=== PATIENT | male | born 2000 | race Caucasian/White ===

== ENCOUNTER 2022-11-03 02:12 | Inpatient (IN) ==
[2022-11-03 03:03] LABS: Basophils # (auto) 0.09 K/uL (0-0.2); Basophils % (auto) 0.8 %; Eosinophils # (auto) 0.28 K/uL (0-0.50); Eosinophils % (auto) 2.4 %; Hematocrit (blood only) 42.4 % (42.0-52.0); Hemoglobin 15.7 g/dl (14.0-18.0); Immature Granulocytes % (auto) 0.9 %; Lymphocytes # (auto) 3.73 K/uL (1.2-3.4); Lymphocytes % (auto) 32.2 %; Mean Corpuscular Hemoglobin 30.8 pg (25.0-34.0); Mean Corpuscular Volume 83.3 fL (80.0-100.0); Mean Platelet Volume 10.5 fL (9.4-12.4); Monocytes % (auto) 7.8 %; Neutrophils # (auto) 6.47 K/uL (1.40-6.50); Neutrophils % (auto) 55.9 %; Platelet Count 293 K/uL (130-400); RDW Standard Deviation 36.3 fL (36.4-46.3); Red Blood Count 5.09 M/uL (4.70-6.10); White Blood Count 11.57 K/ul (4.8-10.8)
[2022-11-03 03:06] LABS: Appearance Urine Turbid (Clear); Bacteria Urine Automated Negative (Negative); Blood Urine 3+ (Negative); Color Urine Red; Glucose Urine UA Negative (Negative); Ketones Urine Negative (Negative); Leukocyte Esterase Urine 1+ (Negative); Nitrite Urine Positive (Negative); Protein Urine 1+ (Negative); RBC Urine Automated >30 /hpf (0-4); Specific Gravity Urine 1.029 (1.000-1.030); Urobilinogen Urine Negative (Negative)
[2022-11-03 03:23] LABS: Albumin Globulin Ratio 1.6 (0.9-2); Albumin Level 4.3 gm/dl (3.4-5.0); BUN Creatinine Ratio 16.5 (10-20); Bilirubin,Total 0.5 mg/dl (0.2-1.0); Calcium 9.4 mg/dl (8.5-10.1); Creatinine Clr Calc Pharmacy 182.2 ml/min; Est GFR (African American) 144.4 ml/min; Est GFR (Non-African American) 124.6 ml/min; Globulin 2.7 gm/dl (2.5-4.0); Potassium 3.8 mmol/L (3.5-5.1)
[2022-11-03 03:47] LABS: Bilirubin Urine 1+ (Negative)
[2022-11-03] MEDS ORDERED: cefTRIAXone SODIUM 2,000 MG/70 ML BAG IV STA (05:23)
--- NOTE | 2022-11-03 05:44 | History & Physical Report ---
Date of Service November 03, 2022 Assessment & Plan (1) Nephrolithiasis: Plan: Jorge is a 22 year old male admitted for hydronephrosis and nephrolithiasis. Nephrolithiasis: -WBC 11.57. -UA w/ blood, nitrite, LE; culture pending. -CT A&P - evidence of hydronephrosis of R kidney from 8.5mm stone at R pelviureteric junction. -NPO, started on IVF D5/.5NSS at 125ml/hr. -Given Ceftriaxone 1g x1 in ED. Continue 1g q24h. -Tylenol 650mg q4h PRN for pain, zofran 4mg PRN for nausea -Urology consulted: -Continue above management, add flomax. -May require cystoscopy w/ stent in near future. -Admit to med/tele DVT Prophylaxis: Patient mobile, no need at current time. F/E/N/GI: NPO. Code status: Full code. Dispo: Med/tele. History of Present Illness Chief Complaint: Abdominal pain. Primary Care Provider: NO PCP Jorge is a 22 year old male w/ no past medical history came to the ED for hematuria x3 days as well as abdominal pain x1day. Patient states that 3 days prior he noticed blood in his urine that had continued to present. He states that that was his only symptom until yesterday when he started to develop R lateral abdominal pain that came down to his R pelvis and was somewhat at the back. He took two Tylenol for the pain initially which helped however subsequent dose did not help too much and so he came in to the emergency department for further evaluation. He denies nausea, vomiting, diaphoresis, fevers, chills, chest pain, shortness of breath, headaches. He denies any past history of kidney stones nor any known family history of kidney stones. He states he last ate when he first came into the ED. 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 In the ED he was found to have a WBC 11.57, hgb 15.7, platelet 293, electrolytes, kidney function, and liver function WNL. U/A was positive for blood, nitrite, LE, WBC. CT A&P showed evidence of hydronephrosis on the R as well as a 8.5mm stone at the R pelviureteric junction. He was given a dose of 1g Ceftriaxone without issue. Allergies Allergy/AdvReac Type Severity Reaction Status Date / Time Penicillins Allergy Hives Verified 11/03/22 03:09 Home Medications Medication Instructions Recorded Confirmed Type oxybutynin chloride 5 mg 5 mg PO DAILY #30 tabs 11/03/22 Rx tablet,extended release 24 hr (Ditropan XL) oxycodone 5 mg tablet 5 mg PO Q6H PRN pain #8 tabs 11/03/22 Rx sulfamethoxazole 800 1 tab PO Q12H #6 tabs 11/03/22 Rx mg-trimethoprim 160 mg tablet (Bactrim DS) tamsulosin 0.4 mg capsule (Flomax) 0.4 mg PO DAILY #30 caps 11/03/22 Rx Past Med/Surg History Medical History No significant past medical history Surgical History (Updated 11/03/22 @ 11:23 by Julian Chin MD) No significant past surgical history Social History Smoking Status: Never smoker Hx Alcohol Use: No Hx Substance Use: No Preferred Language: Polish Communication Ability: Effective Director [employer]anch[employer] Required: No Beliefs That Will Affect Care: None Current Living Situation: Family Feels Safe at Home: Yes Review of Systems Review of Systems: As per HPI. Physical Exam Constitutional: WD/WN, vitals as above Eyes: PERRL, conjunctivae normal, anicteric sclerae ENMT: external ear and nose normal, oropharynx normal Respiratory: normal respiratory effort, lungs clear to auscultation Cardiovascular: RRR, no murmur, no edema Gastrointestinal (Abdomen): normal bowel sounds, soft, nontender, no hepatosplenomegaly Skin: no rashes, warm and dry Psychiatric: A+Ox3, euthymic affect Genitourinary: No CVA tenderness. Results & Data Results & Data ([facility]) Vital Signs (Past 12 Hours) Vital Signs Temp Pulse Pulse Resp BP BP Pulse Ox 11/03/22 03:26 81 16 148/78 H 96 11/03/22 02:18 36.5 C 88 18 160/91 H 100 O2 Del Method 11/03/22 03:26 Room Air 11/03/22 02:18 Room Air Diagnostic Findings CT ABDOMEN & PELVIS Without Contrast: Impression: There is right-sided hydronephrosis due to 8.5 mm calculus at the right pelviureteric junction. No evidence of bladder wall thickening. Unremarkable left kidney. Supervising Physician Co-Signing Physician Notes Attending addendum: I have physically seen this patient, have supervised the medical residents activities, and agree with the H&P unless as otherwise noted. Assessment and Plan: 8.5 mm right UPJ stone/moderate hydronephrosis- NPO Follow urine culture sensitivity Ceftriaxone 2 g IV daily D5 half-normal saline at 125 mils per hour Zofran 4 mg IV every 6 hours as needed Morphine sulfate 4 mg IV every 6 hours as needed moderate pain Urology has seen the patient in the ED Serial CBC with differential, BMP and magnesium levels Remaining orders and notations as noted Resident Activity Tracking Resident Involvement: Resident Care Provided Care Provided: [facility]
--- NOTE | 2022-11-03 05:49 | Urology Consultation ---
Date of Consultation November 03, 2022 Assessment & Plan (1) Nephrolithiasis: The patient is being admitted on the hospitalist service. Recommend proceeding as follows: Provide analgesicsprovide antiemetics Provide IV fluid for hydration Consider adding Flomax for expulsive therapy Initiate antibiotics due to concern for urinary tract infection Recommend keeping the patient n.p.o. for the present time he is currently afebrile without hypotension or tachycardia. He also does not exhibit leukocy tosis or acute kidney injury. An emergent procedure at this time is not required but the patient may require cystoscopy with stent in the near future. This will be determined after evaluation by urology attending this morning Supervising Physician Co-Signing Physician Notes Discussed patient with MARIELA. Agree with plan. Saw patient personally, discussed stone with patient and parents. Due to positive UA and right proximal ureteral calculus, recommend proceeding to the OR for cystoscopy, right retrograde pyelogram and right ureteral stent placement. This cannot occur until after 1 PM as patient ate food at 5 AM. Continue antibiotics. Consent obtained, patient marked History of Present Illness History of Present Illness This is a 22-year-old male who developed right-sided flank pain that radiated to his abdomen over the past 24 hours. Because of this pain he presented to the emergency department. He denies any nausea or vomiting. He denies any fevers, shakes, or chills. He denies any dysuria but does note gross hematuria. He notes he has never had a kidney stone in the past. He does note that his most recent oral intake was approximately 10 minutes ago where he ate a bag of chips. Since arrival to the hospital the patient has had labs and imaging which I independently reviewed. A CT scan of the abdomen pelvis showed that patient had right-sided hydronephrosis secondary to an 8.5 mm kidney stone at the right ureteropelvic junction. Labs include a CBC her white blood cell count was 11.5. Hemoglobin, hematocrit, platelet count were normal. Chemistry profile showed sodium, potassium, BUN, and creatinine were normal. Urinalysis showed turbid urine with 3+ blood and was positive for nitrites. There is also 1+ leukocyte Estrace and 10-30 white blood cells per high-power field. There is no bacteria noted on the study. A COVID test is pending. At the time of my interview he was resting comfortably in bed and he was in no distress. Allergies Allergy/AdvReac Type Severity Reaction Status Date / Time Penicillins Allergy Hives Verified 11/03/22 03:09 Home Medications Medication Instructions Recorded Confirmed Type Azo Max Strength 2 tab PO DIRECTED 11/03/22 11/03/22 History acetaminophen 325 mg capsule 1,300 mg PO QID PRN Pain 11/03/22 11/03/22 History (Tylenol) Patient History Medical History No significant past medical history Social History Smoking Status: Never smoker Hx Alcohol Use: No Hx Substance Use: No Preferred Language: Citizen Of [place] Communication Ability: Effective Helper Driver Required: No Beliefs That Will Affect Care: None Current Living Situation: Family Other Information That Helps Us Care for You: No Feels Safe at Home: Yes Safety Concerns: Feels Safe At This Time Review of Systems Constitutional: no fever and no chills Eyes: + corrective lenses Ear, Nose, Mouth, Throat: no ear pain Respiratory: no cough and no dyspnea Cardiovascular: no chest pain Gastrointestinal: + abdominal pain (Radiating from right flank); no nausea and no vomiting Genitourinary: + as per Subjective / HPI Musculoskeletal: + back pain (Right flank) Integumentary: no rash Neurologic: no localized weakness Physical Exam Constitutional: WD/WN, vitals as above Eyes: no conjunctival abnormality ENMT: Ears: no hearing impairment and no external ear abnormality Mouth: no oropharynx abnormality Neck: trachea midline Respiratory: normal respiratory effort; no respiratory distress and no labored breathing Cardiovascular: Rate/Rhythm: regular rate and regular rhythm Gastrointestinal (Abdomen): Soft, nonrigid, nondistended, nontender to palpation Musculoskeletal: No calf tenderness Skin: no rashes Neurologic: moves all extremities Psychiatric: A+Ox3, euthymic affect Genitourinary: + CVA tenderness (Minimal CVA tenderness on right side with percussion) Results & Data ([facility]) Vital Signs (Past 12 Hours) Vital Signs Temp Pulse Pulse Resp BP BP Pulse Ox 11/03/22 03:26 81 16 148/78 H 96 11/03/22 02:18 36.5 C 88 18 160/91 H 100 O2 Del Method 11/03/22 03:26 Room Air 11/03/22 02:18 Room Air PG Care Time/CCT Total # of Minutes Spent Total Time Spent with Patient: Total time spent is greater than 50% in coordination of care (as documented) at patient's floor/unit and/or counseling patient: Coding Level of Care Code INP/OBS CONSULT LVL 5, 80 MIN Diagnoses Nephrolithiasis N20.0
--- NOTE | 2022-11-03 07:03 | CT Scan Report ---
CT SCAN OF THE ABDOMEN AND PELVIS WITHOUT IV CONTRAST CLINICAL HISTORY: Right flank pain. Hematuria. COMPARISON STUDY: No priors. TECHNIQUE: CT scan of the abdomen and pelvis is performed from the lung bases to the proximal femora. Images are reviewed in the axial, sagittal, and coronal planes. IV contrast was not administered for this examination. A dose lowering technique was utilized adhering to the principles of ALARA. CT DOSE: 1856.70 mGy.cm FINDINGS: Lung bases: The heart is normal in size and without pericardial effusion. The lung bases are clear. Liver: The unenhanced liver is enlarged, measuring 21.8 cm in length. The liver demonstrates diminish ed attenuation indicating mild steatosis. Fatty sparing is seen adjacent to the gallbladder fossa. Th ere is no intrahepatic biliary ductal dilatation. Gallbladder: Unremarkable. Spleen: Normal in size and attenuation. Pancreas: Unremarkable. Adrenal glands: Unremarkable. Kidneys: The unenhanced kidneys are normal in size. There is a 9 mm obstructing calculus at the right ureteropelvic junction seen on axial image #183. This causes [id number] right hydronephrosis. No additional calculi are identified in either kidney. There is no left ureteral stone and no left-si ded hydronephrosis. There is no evidence of contour deforming renal mass lesion. Abdominal vasculature: The abdominal aorta is normal in course and caliber. Bowel: Mild fecal retention is seen throughout the colon. There is no bowel obstruction. The appendix is well-visualized and normal. Peritoneum: There is no intraperitoneal free air or abdominal ascites. Lymphadenopathy: None. Pelvic viscera: The bladder, prostate, and seminal vesicles are normal as visualized. Skeletal structures: No lytic or blastic lesions are seen. IMPRESSION: 1. There is a 9 mm obstructing calculus at the right ureteropelvic junction. This causes mild to mode rate right hydronephrosis. 2. No additional calculi are identified in either kidney. 3. The liver is enlarged and mildly steatotic. 4. Additional findings as above. ACT 112: Negative or not required by law. Electronically signed by: Robert Musa M.D. 11/03/2022 7:01 AM
--- NOTE | 2022-11-03 07:24 | Emergency Department Note ---
History of Present Illness General Chief complaint: Abdominal Pain Stated complaint: LRQ ABD PAIN Time Seen by Provider: 11/03/22 02:30 Source: patient Mode of arrival: ambulatory Limitations: no limitations History of Present Illness Maximum Pain Intensity: 6 This patient is a 22-year-old male who presents to the emergency department for evaluation of abdominal pain and hematuria. Patient reports that he has noticed some hematuria intermittently over the past 2 days. He started taking some Azo, thinking it might be a UTI. He states that today, he has intermittent severe right-sided abdomen pain. He states that the pain radiates through his flank. He is feeling okay at this time but states that the pain is severe when it comes. He denies any vomiting. He denies any other urinary symptoms. He rates his discomfort a 6/10 at its worst. He denies any history of similar symptoms. He denies any fevers/chills Home Medications Medication Instructions Recorded Confirmed Type Azo Max Strength 2 tab PO DIRECTED 11/03/22 11/03/22 History acetaminophen 325 mg capsule 1,300 mg PO QID PRN Pain 11/03/22 11/03/22 History (Tylenol) Allergies Allergy/AdvReac Type Severity Reaction Status Date / Time Penicillins Allergy Hives Verified 11/03/22 03:09 Past Med/Surg History Medical History No significant past medical history Social History Smoking Status: Never smoker Feels Safe at Home: Yes Physical Exam Vital Signs Vital Signs - 24 hr 11/03/22 02:18 11/03/22 03:26 11/03/22 05:45 Temperature 36.5 C Temperature Source Temporal Artery Scan Pulse Rate 88 96 H Pulse Rate [Right Finger] 81 Pulse Rhythm Regular Respiratory Rate 18 16 18 Respiratory Effort / Characteristics Non-Labored Spontaneous Non-Labored Spontaneous Respiratory Depth Normal Normal Blood Pressure 160/91 H Blood Pressure [Right Arm] 148/78 H Blood Pressure Mean 114 Blood Pressure Mean [Right Arm] 101 Pulse Oximetry 100 96 93 Oxygen Delivery Method Room Air Room Air Room Air Sepsis Recent Fever Within 48 Hours No Sepsis New/Unexplained Change in Mental Status No Sepsis Action Taken by Nursing No Action Required VITALS: Vitals are noted on the nurse's note and reviewed by myself. GENERAL: This is a 22-year-old male, in no acute distress, well-developed well- nourished. SKIN: The skin was without rashes. EYES: Pupils equal round and reactive to light and accommodation. MOUTH: Mucous membranes moist. HEART: Regular rate and rhythm without murmurs gallops or rubs. LUNGS: Clear to auscultation bilaterally without wheezes, rales or rhonchi. ABDOMEN: Positive bowel sounds x 4. Soft, no tenderness to palpation. No guarding or rebound tenderness. NEURO: Patient was alert and oriented to person place and time. Course Consultations Consultation #1: Harman Emanuel PA-C - urology Consultation #2: [place]. Reynoso [place] [facility] Administered Medications Discontinued Medications Ceftriaxone Sodium (Rocephin) 2,000 mg in 70 mls @ 140 mls/hr IV NOW STA Stop: 11/03/22 05:52 Last Admin: 11/03/22 06:52 Dose: 140 mls/hr Documented By: TRINA Medical Decision Making Differential Diagnosis Appendicitis, testicular torsion, infections, diverticulitis, UTI, obstruction, mesenteric ischemia, aortic pathology, inflammatory bowel disease, renal colic, PUD, pancreatitis, biliary pathology, hernia, volvulus, constipation, as well as other pathologies. Home Medications Current Medication List: was personally reviewed by me Laboratory Data Attestation: I reviewed the patient's lab results. 11/03/22 02:36 11/03/22 02:36 Lab Results 11/03/22 11/03/22 11/03/22 Range/Units 02:36 02:36 02:36 WBC 11.57 H (4.8-10.8) K/ul RBC 5.09 (4.70-6.10) M/uL Hgb 15.7 (14.0-18.0) g/dl Hct 42.4 (42.0-52.0) % MCV 83.3 (80.0-100.0) fL MCH 30.8 (25.0-34.0) pg MCHC 37.0 H (32.0-36.0) g/dL RDW Std Deviation 36.3 L (36.4-46.3) fL RDW Coeff of Figueroa 12.0 (11.5-14.5) % Plt Count 293 (130-400) K/uL MPV 10.5 (9.4-12.4) fL Immature Gran % (Auto) 0.9 % Neut % (Auto) 55.9 % Lymph % (Auto) 32.2 % [place] % (Auto) 7.8 % Eos % (Auto) 2.4 % Baso % (Auto) 0.8 % Neut # (Auto) 6.47 (1.40-6.50) K/uL Lymph # (Auto) 3.73 H (1.2-3.4) K/uL [place] # (Auto) 0.90 H (0.11-0.59) K/uL Eos # (Auto) 0.28 (0-0.50) K/uL Baso # (Auto) 0.09 (0-0.2) K/uL Immature Gran # (Auto) 0.10 (0.01-0.20) K/uL Sodium 138 (136-145) mmol/L Potassium 3.8 (3.5-5.1) mmol/L Chloride 106 (98-107) mmol/L Carbon Dioxide 25 (21-32) mmol/L Anion Gap 7 (3-11) BUN 14 (6-23) mg/dl Creatinine 0.85 (0.6-1.4) mg/dl Est Cr Clr Drug Dosing 182.2 ml/min Est GFR ( Amer) 144.4 ml/min Est GFR (Non-Af Amer) 124.6 ml/min BUN/Creatinine Ratio 16.5 (10-20) Glucose 133 H (70-99(Fasting)) mg/dl Calcium 9.4 (8.5-10.1) mg/dl Total Bilirubin 0.5 (0.2-1.0) mg/dl AST 19 (13-39) U/L ALT 28 (7-52) U/L Alkaline Phosphatase 79 (34-104) U/L Total Protein 7.0 (6.0-8.3) gm/dl Albumin 4.3 (3.4-5.0) gm/dl Globulin 2.7 (2.5-4.0) gm/dl Albumin/Globulin Ratio 1.6 (0.9-2) Lipase 12 (11-82) U/L Urine Color Red Urine Appearance Turbid A (Clear) Urine pH 5.0 (4.5-7.5) Ur Specific Howell 1.029 (1.000-1.030) Urine Protein 1+ H (Negative) Urine Glucose (UA) Negative (Negative) Urine Ketones Negative (Negative) Urine Blood 3+ H (Negative) Urine Nitrite Positive A (Negative) Urine Bilirubin 1+ H (Negative) Urine Urobilinogen Negative (Negative) Ur Leukocyte Esterase 1+ H (Negative) Urine WBC (Auto) 10-30 H (0-5) /hpf Urine RBC (Auto) >30 H (0-4) /hpf U Hyaline Cast (Auto) 1-5 (0-5) /lpf U Epithel Cells (Auto) 10-20 H (0-5) /lpf Urine Bacteria (Auto) Negative (Negative) SARS-CoV-2, RNA, NAAT (NEGATIVE) 11/03/22 Range/Units 05:39 WBC (4.8-10.8) K/ul RBC (4.70-6.10) M/uL Hgb (14.0-18.0) g/dl Hct (42.0-52.0) % MCV (80.0-100.0) fL MCH (25.0-34.0) pg MCHC (32.0-36.0) g/dL RDW Std Deviation (36.4-46.3) fL RDW Coeff of Figueroa (11.5-14.5) % Plt Count (130-400) K/uL MPV (9.4-12.4) fL Immature Gran % (Auto) % Neut % (Auto) % Lymph % (Auto) % [place] % (Auto) % Eos % (Auto) % Baso % (Auto) % Neut # (Auto) (1.40-6.50) K/uL Lymph # (Auto) (1.2-3.4) K/uL [place] # (Auto) (0.11-0.59) K/uL Eos # (Auto) (0-0.50) K/uL Baso # (Auto) (0-0.2) K/uL Immature Gran # (Auto) (0.01-0.20) K/uL Sodium (136-145) mmol/L Potassium (3.5-5.1) mmol/L Chloride (98-107) mmol/L Carbon Dioxide (21-32) mmol/L Anion Gap (3-11) BUN (6-23) mg/dl Creatinine (0.6-1.4) mg/dl Est Cr Clr Drug Dosing ml/min Est GFR ( Amer) ml/min Est GFR (Non-Af Amer) ml/min BUN/Creatinine Ratio (10-20) Glucose (70-99(Fasting)) mg/dl Calcium (8.5-10.1) mg/dl Total Bilirubin (0.2-1.0) mg/dl AST (13-39) U/L ALT (7-52) U/L Alkaline Phosphatase (34-104) U/L Total Protein (6.0-8.3) gm/dl Albumin (3.4-5.0) gm/dl Globulin (2.5-4.0) gm/dl Albumin/Globulin Ratio (0.9-2) Lipase (11-82) U/L Urine Color Urine Appearance (Clear) Urine pH (4.5-7.5) Ur Specific Howell (1.000-1.030) Urine Protein (Negative) Urine Glucose (UA) (Negative) Urine Ketones (Negative) Urine Blood (Negative) Urine Nitrite (Negative) Urine Bilirubin (Negative) Urine Urobilinogen (Negative) Ur Leukocyte Esterase (Negative) Urine WBC (Auto) (0-5) /hpf Urine RBC (Auto) (0-4) /hpf U Hyaline Cast (Auto) (0-5) /lpf U Epithel Cells (Auto) (0-5) /lpf Urine Bacteria (Auto) (Negative) SARS-CoV-2, RNA, NAAT NEGATIVE (NEGATIVE) Imaging Data Attestation: I personally reviewed and interpreted this imaging study as follows: Radiologist's Impression: Abdomen/Pelvis CT 11/03/22 02:54 CT SCAN OF THE ABDOMEN AND PELVIS WITHOUT IV CONTRAST CLINICAL HISTORY: Right flank pain. Hematuria. COMPARISON STUDY: No priors. TECHNIQUE: CT scan of the abdomen and pelvis is performed from the lung bases to the proximal femora. Images are reviewed in the axial, sagittal, and coronal planes. IV contrast was not administered for this examination. A dose lowering technique was utilized adhering to the principles of ALARA. CT DOSE: 1856.70 mGy.cm FINDINGS: Lung bases: The heart is normal in size and without pericardial effusion. The lung bases are clear. Liver: The unenhanced liver is enlarged, measuring 21.8 cm in length. The liver demonstrates diminished attenuation indicating mild steatosis. Fatty sparing is seen adjacent to the gallbladder fossa. There is no intrahepatic biliary ductal dilatation. Gallbladder: Unremarkable. Spleen: Normal in size and attenuation. Pancreas: Unremarkable. Adrenal glands: Unremarkable. Kidneys: The unenhanced kidneys are normal in size. There is a 9 mm obstructing calculus at the right ureteropelvic junction seen on axial image #183. This causes [id number] right hydronephrosis. No additional calculi are identified in either kidney. There is no left ureteral stone and no left-sided hydronephrosis. There is no evidence of contour deforming renal mass lesion. Abdominal vasculature: The abdominal aorta is normal in course and caliber. Bowel: Mild fecal retention is seen throughout the colon. There is no bowel obstruction. The appendix is well-visualized and normal. Peritoneum: There is no intraperitoneal free air or abdominal ascites. Lymphadenopathy: None. Pelvic viscera: The bladder, prostate, and seminal vesicles are normal as visualized. Skeletal structures: No lytic or blastic lesions are seen. IMPRESSION: 1. There is a 9 mm obstructing calculus at the right ureteropelvic junction. This causes mild to moderate right hydronephrosis. 2. No additional calculi are identified in either kidney. 3. The liver is enlarged and mildly steatotic. 4. Additional findings as above. ACT 112: Negative or not required by law. Electronically signed by: Robert Musa M.D. 11/03/2022 7:01 AM Discharge Plan Visit Data Chief Complaint: Abdominal Pain Stated Complaint: LRQ ABD PAIN ED Provider: Tania Hendrickson ED Midlevel Provider: Nicole Emery Forms Stand Alone Forms: [facility] [employer] Prescriptions Prescriptions: No Action Azo Max Strength 2 tab PO DIRECTED Rx Instructions: TAKE Q 5-6HRS FOR MAX OF 6 A DAY acetaminophen [Tylenol] 325 mg Capsule 1,300 mg PO QID PRN (Reason: Pain) Referrals Referrals: PCP,NO [Primary Care Provider] -
[2022-11-03] MEDS ORDERED: ONDANSETRON INJ 2 MG/ML 2 ML VIAL IV PRN ×2 (08:57→12:54)
[2022-11-03] MEDS ORDERED: ACETAMINOPHEN 325 MG TAB PO PRN (08:57)
[2022-11-03] MEDS ORDERED: TAMSULOSIN HCL 0.4 MG CAP PO SCH (09:00)
[2022-11-03] MEDS ORDERED: D5W AND 1/2NSS 1,000 ML IV SCH (09:15)
--- NOTE | 2022-11-03 09:34 | Discharge Summary ---
Date of Service November 03, 2022 Admission HPI Per Admitting Provider Jorge is a 22 year old male w/ no past medical history came to the ED for hematuria x3 days as well as abdominal pain x1day. Patient states that 3 days prior he noticed blood in his urine that had continued to present. He states that that was his only symptom until yesterday when he started to develop R lateral abdominal pain that came down to his R pelvis and was somewhat at the back. He took two Tylenol for the pain initially which helped however subsequent dose did not help too much and so he came in to the emergency department for further evaluation. He denies nausea, vomiting, diaphoresis, fevers, chills, chest pain, shortness of breath, headaches. He denies any past history of kidney stones nor any known family history of kidney stones. He states he last ate when he first came into the ED. 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 In the ED he was found to have a WBC 11.57, hgb 15.7, platelet 293, electrolytes, kidney function, and liver function WNL. U/A was positive for blood, nitrite, LE, WBC. CT A&P showed evidence of hydronephrosis on the R as well as a 8.5mm stone at the R pelviureteric junction. He was given a dose of 1g Ceftriaxone without issue. Admission Exam Per Admitting Provider Constitutional: WD/WN, vitals as above Eyes: PERRL, conjunctivae normal, anicteric sclerae ENMT: external ear and nose normal, oropharynx normal Respiratory: normal respiratory effort, lungs clear to auscultation Cardiovascular: RRR, no murmur, no edema Gastrointestinal (Abdomen): normal bowel sounds, soft, nontender, no hepatosplenomegaly Skin:I no rashes, warm and dry Psychiatric: A+Ox3, euthymic affect Genitourinary: No CVA tenderness. Principal Diagnosis Right Nephrolithiasis, Hydronephrosis Discharge Exam General: A&Ox3. NAD. Cooperative. HEENT: Atraumatic, normocephalic. Pulm: CTAB A&P. -wheezes, -rales, -rhonchi. Symmetrical chest rise. No increase work of breathing. No respiratory distress. Cardiac: RRR, -mrg. Radial pulses intact and symmetrical. No LE edema. Abdominal: soft, non-tender, non-distended, BS x 4 Back: no CVA tenderness Skin: warm, dry, no rash Discharge Data Allergies Allergy/AdvReac Type Severity Reaction Status Date / Time Penicillins Allergy Hives Verified 11/03/22 03:09 Consultations 11/03/22 05:34 ED Decision to Admit Stat 11/03/22 08:57 Consult Urology Routine Procedures Performed Operation Date: 11/03/22 13:00 <No data on this case meets the specified criteria> Ordered Studies 11/03/22 02:54 CT abd pelvis wo con Urgent Hospital Course (1) Nephrolithiasis: Jorge is a 22 year old male admitted for R hydronephrosis due to 9mm nephrolithiasis at [facility]. - WBC 11.6, no NELIDA - UA w/ blood, nitrite, LE; culture pending. - CT A&P - evidence of hydronephrosis of R kidney from 9mm stone at R [facility] - NPO, started on IVF D5/.5NSS at 125ml/hr, as well as Ceftriaxone and Flomax - Urology consulted: patient had cystoscopy with right ureteral stent placed on 11/03 - continue with Bactrim x3 days, Flomax, and Ditropan and Oxycodone PRN - counseled on increased fluid intake - will require PCP f/u as well as Urology f/u for stent removal in 3 months - patient will establish with Urologist near [place] to have this done Total Time Total Time Spent Total Time Spent (In Minutes): <30 minutes Discharge Plan Discharge Items Patient Disposition: Home - Self-Care Reason For Visit: ABD PAIN, NEPHROLITHIASIS Discharge Diagnosis: Hydronephrosis, Nephrolithiasis Activity: Per Instructions section Non-emergency contact: Primary Care Provider and Urologist Call non-emergency contact if: you have any medication questions, your symptoms worsen and you have a fever Follow-up/Referrals: PCP,NO [Primary Care Provider] - Diet: Regular Addtl Attending Provider Instructions: You were admitted to [facility] on 11/03 for a 9mm right-sided kidney stone. Urologic instructions: You had a stent placed in your right kidney. This can stay in for 3 months before needing to be exchanged. When you get home, please establish care with your urologist in order to have your right kidney stone treated and the stent ultimately removed. You can call the [facility] urology office if you need assistance with getting a referral. Prescriptions for oxycodone, Flomax, Ditropan and antibiotic have been sent to your pharmacy. Flomax and Ditropan as needed for stent discomfort. Oxycodone for breakthrough pain. Tylenol and alternating ibuprofen typically are enough for stent discomfort. you can utilize miralax (polyethelyne glycol) for constipation ---- unrelated to your hospital stay, but looking at your career goals -- we love to have interested students join the rounding team to shadow. once you're feeling better start an email thread with me ([email or web address]) and the medical staff office ( [email or web address]) to get things started (they have to have you jump through a few hoops to verify you're actually a student, and to go through HIPPA training) Pending Studies at Discharge: No Stand-Alone Forms: My [facility], Work/School Release, Smoking Cessation Medications and DC Order Prescriptions: New tamsulosin [Flomax] 0.4 mg capsule 0.4 mg PO DAILY Qty: 30 0RF oxycodone 5 mg tablet 5 mg PO Q6H PRN (Reason: pain) Qty: 8 0RF oxybutynin chloride [Ditropan XL] 5 mg tablet extended release 24hr 5 mg PO DAILY Qty: 30 0RF Rx Instructions: as needed for bladder spasms sulfamethoxazole-trimethoprim [Bactrim DS] 800-160 mg tablet 1 tab PO Q12H Qty: 6 0RF Discontinued Azo Max Strength 2 tab PO DIRECTED Rx Instructions: TAKE Q 5-6HRS FOR MAX OF 6 A DAY acetaminophen [Tylenol] 325 mg Capsule 1,300 mg PO QID PRN (Reason: Pain) Discharge Orders: Discharge Order (Routine); Ordered 11/03/22 Ordered By: Donell Jerome Admission Data Admit Date/Time: 11/03/22 06:15 Attending Provider: Donell Jerome Admit Provider: Jakob Nation Primary Care Provider: PCP,NO Other Providers: Vaibhav Reynoso ; Les Richards Other Interventions: Discharge Summary Assessment (RN) Last Done: 11/03/22 16:23 Supervising Physician Co-Signing Physician Notes I personally examined the patient and verified all cristina points of history and exam, discussed case, and agree with decision making with Dr Borges saw pre and post op. feeling OK post op feels up to going home. extensive discussion with patient and parents. Outlined plan. They expressed good understanding. Vitals noted, in general he is awake and alert pleasant no distress. Breathing unlabored no accessory muscle use good effort. Skin shows no rashes no pallor or icterus. Ureterolithiasisnow status post cystoscopy/stenting. Safe/stable for home. Short course of Bactrim, oxycodone/oxybutynin/Flomax per urology. Outpatient urology follow-up. MiraLAX as needed constipation. Resident Activity Tracking Resident Involvement: Resident Care Provided Care Provided: Adult Hospital Medicine
--- NOTE | 2022-11-03 11:23 | Anesthesiology Consultation ---
Date of Service November 03, 2022 History Surgery Operation Date: 11/03/22 13:00 Proposed Procedures p Ureteral Stent(Right) - Les Richards MD Height/Weight Height: 5 ft 10 in Weight: 122.47 kg Allergies Allergy/AdvReac Type Severity Reaction Status Date / Time Penicillins Allergy Hives Verified 11/03/22 03:09 Medications Home Medications Medication Instructions Recorded Confirmed Last Taken Azo Max Strength 2 tab PO DIRECTED 11/03/22 11/03/22 Unknown acetaminophen 325 mg capsule 1,300 mg PO QID PRN Pain 11/03/22 11/03/22 Unknown (Tylenol) Active Medications Generic Name Dose Route Start Last Admin Trade Name Freq PRN Reason Stop Dose Admin Dextrose/Sodium Chloride 1,000 mls @ 125 mls/hr 11/03/22 09:15 11/03/22 09:28 D5w And 1/2nss IV 12/03/22 09:14 125 mls/hr .Q8H HORACIO Administration Tamsulosin HCl 0.4 mg 11/03/22 09:00 11/03/22 09:28 Tamsulosin Hcl 0.4 Mg Cap PO 12/03/22 08:59 Not Given QAM HORACIO Past Medical History Medical History No significant past medical history Past Surgical History Surgical History (Updated 11/03/22 @ 11:23 by Julian Chin MD) No significant past surgical history Social History Smoking Status: Never smoker Hx Alcohol Use: No Hx Substance Use: No Physical Exam Vital Signs Last Vital Signs Temp 36.9 C 11/03/22 08:15 Pulse 73 11/03/22 09:34 Resp 18 11/03/22 08:15 BP 132/83 11/03/22 08:15 Pulse Ox 99 11/03/22 08:15 O2 Del Method 11/03/22 08:15 Testing Laboratory Results 11/03/22 02:36 11/03/22 02:36 Urine Color Red 11/03/22 02:36 Urine Appearance Turbid (Clear) A 11/03/22 02:36 Urine pH 5.0 (4.5-7.5) 11/03/22 02:36 Ur Specific Canones 1.029 (1.000-1.030) 11/03/22 02:36 Urine Protein 1+ (Negative) H 11/03/22 02:36 Urine Glucose (UA) Negative (Negative) 11/03/22 02:36 Urine Ketones Negative (Negative) 11/03/22 02:36 Urine Nitrite Positive (Negative) A 11/03/22 02:36 Ur Leukocyte Esterase 1+ (Negative) H 11/03/22 02:36 Urine WBC (Auto) 10-30 /hpf (0-5) H 11/03/22 02:36 Urine RBC (Auto) >30 /hpf (0-4) H 11/03/22 02:36 U Hyaline Cast (Auto) 1-5 /lpf (0-5) 11/03/22 02:36 U Epithel Cells (Auto) 10-20 /lpf (0-5) H 11/03/22 02:36 Urine Bacteria (Auto) Negative (Negative) 11/03/22 02:36
[2022-11-03] MEDS ORDERED: DEXAMETHASONE SOD INJ 4 MG/ML VIAL ONE (12:52)
[2022-11-03] MEDS ORDERED: PROPOFOL IV EMULSION 10 MG/ML 20 ML VIAL IV ONE (12:52)
[2022-11-03] MEDS ORDERED: ONDANSETRON INJ 2 MG/ML 2 ML VIAL ONE (12:52)
[2022-11-03] MEDS ORDERED: fentaNYL citrate 100 MCG/2 ML VIAL ONE (12:52)
[2022-11-03] MEDS ORDERED: MIDAZOLAM HCL 1 MG/ML 2ML VIAL ONE (12:52)
[2022-11-03] MEDS ORDERED: ATROPINE SULFATE 0.1 MG/ML 10ML SYR IV PRN (12:54)
[2022-11-03] MEDS ORDERED: fentaNYL citrate 100 MCG/2 ML VIAL IV PRN (12:54)
[2022-11-03] MEDS ORDERED: KETOROLAC 30 MG/ML VIAL ONE (13:13)
--- NOTE | 2022-11-03 13:35 | Post Operative Brief Note ---
PG Immediate Post Op with CF Date of Surgery November 03, 2022 Pre & Post Diagnosis Operation Date: 11/03/22 13:00 Pre-Op Diagnosis: Nephrolithiasis Post-Op Diagnosis: Nephrolithiasis I identified the patient and participated in the time-out.: Yes Procedure Operation Date: 11/03/22 13:00 Actual Procedures p Cystoscopy, Right Retrograde Pyelogram, Right Ureteral Stent Placement(Not Applicable) - Les Richards MD Surgeon Les Richards MD [place] None Estimated Blood Loss 5 Findings See Below Retrograde showed mild hydronephrosis. Stent in appropriate position Specimens Specimen Description: None per surgeon Drains Other (Right variable length stent) Complications none
--- NOTE | 2022-11-03 13:36 | Operative Report ---
PG Post Operative Report Pre & Post Diagnosis Operation Date: 11/03/22 13:00 Pre-Op Diagnosis: Nephrolithiasis Post-Op Diagnosis: Nephrolithiasis I identified the patient and participated in the time-out.: Yes Procedure Operation Date: 11/03/22 13:00 Actual Procedures p Cystoscopy, Right Retrograde Pyelogram with radiographic interpretation, Right Ureteral Stent Placement(Not Applicable) - Les Richards MD Surgeon Les Richards MD Forging Operator None Estimated Blood Loss 5 Findings See Below Mild right hydronephrosis. Stent in appropriate position. Specimens None Drains 6 Sudanese variable length stent Complications none Indications 22-year-old male with a right proximal obstructing ureteral calculus and UA concerning for infection. Risk and benefits discussed taken to the OR for stent placement. Description of Procedure After informed consent was obtained, the patient was transported operative suite. MAC anesthesia was induced. The patient was placed in dorsolithotomy position prepped and draped in a sterile fashion. They received preoperative ceftriaxone for antibiotic prophylaxis. An appropriate surgical timeout was performed. A 22 Sudanese rigid scope was inserted per urethra into the bladder. Eduardo cystoscopy revealed no stones or lesions. I turned my attention the right ureteral orifice and intubated this with a 5 Sudanese open-ended catheter. A right retrograde pyelogram was shot which showed mild hydronephrosis. A sensor wire was advanced into the kidney and confirmed fluoroscopically. I attempted to advance a 6 Sudanese by 28 cm right ureteral stent but this was too short. I swapped this out for a variable length stent. A 6 Sudanese variable length right ureteral stent was deployed with a good proximal coil in the renal pelvis and a good distal coil noted in the bladder, confirmed fluoroscopically and under direct visualization, respectively. The bladder was emptied and the scope was removed. This concluded the end of the case. All counts were correct at the end of the case. I was present, scrubbed, and actively participated for the entirety of the procedure. I attest to the content of the Intraoperative Record and any orders documented therein. Any exceptions are noted below.
[2022-11-03] MEDS ORDERED: DIATRIZOATE MEGLUMINE 30% 100ML VIAL INSTIL ONE (13:38)
--- NOTE | 2022-11-03 13:47 | Fluoroscopy Report ---
INTRAOPERATIVE RADIOGRAPH CLINICAL HISTORY: Right ureteral stent placement. Fluoro time: 8 seconds Exposure: 3.28 mGy FINDINGS: A single spot fluoroscopic image of the right upper quadrant is correlated with abdominal C T dated 11/03/2022. Contrast in the right renal pelvis shows mild hydronephrosis. The proximal end of a right ureteral stent is in appropriate position. IMPRESSION: Intraoperative image from a right ureteral stent placement procedure as above. Electronically signed by: Robert Musa M.D. 11/03/2022 1:46 PM
--- NOTE | 2022-11-03 14:41 | Anesthesiology Progress Note ---
Date of Service November 03, 2022 Anesthesia Post Procedure Vital Signs Vital Signs: Temp Pulse Pulse Pulse Resp BP BP 11/03/22 14:10 36.6 C 60 12 133/76 11/03/22 14:00 68 22 155/74 H 11/03/22 13:50 77 22 140/68 11/03/22 13:41 36.1 C L 68 20 109/60 11/03/22 09:34 73 11/03/22 08:15 36.9 C 86 18 132/83 11/03/22 07:00 90 18 131/73 11/03/22 05:45 96 H 18 11/03/22 03:26 81 16 148/78 H 11/03/22 02:18 36.5 C 88 18 160/91 H Pulse Ox O2 Del Method O2 Flow Rate 11/03/22 14:10 98 Room Air 11/03/22 14:00 98 Oxymask 2 11/03/22 13:50 99 Oxymask 5 11/03/22 13:41 99 Oxymask 15 11/03/22 09:34 11/03/22 08:15 99 Room Air 11/03/22 07:00 96 Room Air 11/03/22 05:45 93 Room Air 11/03/22 03:26 96 Room Air 11/03/22 02:18 100 Room Air Transfer of Care Handoff Completed per policy Notes Mental Status: alert / awake / arousable Patient Amnestic to Procedure: Yes Nausea / Vomiting: adequately controlled Pain: adequately controlled Airway Patency, RR, SpO2: stable & adequate BP & HR: stable & adequate Hydration State: stable & adequate Anesthetic Complications: no major complications apparent
[2022-11-03] MEDS ORDERED: SEPTRA DS HOME PACK PO ONE (15:49)
[2022-11-03] MEDS ORDERED: oxyCODONE IR HOME PACK PO ONE (16:00)
--- NOTE | 2022-11-03 17:23 | Billing Data ---
Date of Service November 03, 2022 Coding Level of Care Code HOSP INP/OBS DISCH 30 MIN/LESS
--- NOTE | 2022-11-03 20:06 | Billing Data ---
Date of Service November 03, 2022 Coding Level of Care Code 96206 INT INP/OBS CARE
[2022-11-04] MEDS ORDERED: cefTRIAXone SODIUM 2,000 MG in DEXTROSE 5% 50 ML IV SCH (05:00)
== END 2022-11-03 17:40 | disposition home or self-care (01) | DRG 661 ==
LOC: ED 02:12 → 2N 06:15 → SUATTDRO 06:15 → 2N 07:52